=== PATIENT | male | born 1970 | race Caucasian/White ===

== ENCOUNTER 2020-02-25 12:32 | Inpatient (IN) | payer MEDICAID ==
[~2020-02-25] VITALS: Ht 170.2 cm; Wt 75.7 kg
[2020-02-25] MEDS ORDERED: IBUPROFEN 600MG TABLET PO STA (13:27)
[2020-02-25] MEDS ORDERED: ALBUTEROL 6.7GM HFA INHALER ORI ONE (13:30)
[2020-02-25 14:19] LABS: BASOPHILS % 0.2 % (0.0-2.0); EOSINOPHILS % 0.7 % (0.0-5.0); HEMOGLOBIN. 16.9 g/dL (14.0-18.0); MEAN CORPUSCULAR HEMOGLOBIN 30.6 pg (28.0-32.0); MEAN PLATELET VOLUME 7.3 fl (7.4-10.4); MONOCYTES % 6.8 % (2.0-8.0); NEUTROPHILS % 82.3 % (40.0-76.0); PLATELET 287 x1000/uL (130-400); RED BLOOD CELL COUNT 5.51 mill/uL (4.7-6.1); RED CELL DISTRIBUTION WIDTH 13.8 % (11.6-14.6)
[2020-02-25 14:20] LABS: CLARITY URINE CLEAR (CLEAR); COLOR URINE YELLOW (YELLOW); KETONES URINE NEGATIVE (NEGATIVE); LEUKOCYTE ESTERASE URINE NEGATIVE (NEGATIVE); NITRITE URINE NEGATIVE (NEGATIVE); OCCULT BLOOD URINE NEGATIVE (NEGATIVE); PH URINE 7.5 (4.5-8.0); PROTEIN URINE 1+ (NEGATIVE); SPECIFIC GRAVITY URINE 1.016 (1.005-1.030)
[2020-02-25 14:25] LABS: CHLORIDE 103 mEq/L (98-107)
[2020-02-25] MEDS ORDERED: IBUPROFEN 600MG TABLET PO PRN (16:00)
[2020-02-25] MEDS ORDERED: ACETAMINOPHEN 325MG TABLET PO PRN (18:45)
[2020-02-25] MEDS ORDERED: ONDANSETRON HCL 4MG/2ML INJ IV PRN (18:45)
[2020-02-25] MEDS ORDERED: ALBUTEROL 6.7GM HFA INHALER ORI PRN (18:45)
[2020-02-25] MEDS ORDERED: BENZONATATE 100MG CAPSULE PO PRN (18:45)
[2020-02-25 23:05] LABS: PROTHROMBIN TIME 10.5 sec (9.6-11.0)
[2020-02-26] VITALS (7 sets, daily range): BP systolic 114–149; BP diastolic 63–94
[2020-02-26] MEDS: GUAIFENESIN 600MG ER TABLET PO SCH ×3 (00:19→20:23)
[2020-02-26] MEDS: ENOXAPARIN 60MG/0.6ML SYR SUBCUT SCH ×3 (00:19→20:21)
[2020-02-26] MEDS ORDERED: AZITHROMYCIN 500 MG in DEXT 5% WATER 250 ML IV NR (00:30)
[2020-02-26] MEDS ORDERED: DOXY150T5 PO (02:07)
[2020-02-26] MEDS ORDERED: AZIT250T12 PO (02:07)
[2020-02-26] MEDS ORDERED: PRED10TA23 PO (02:07)
[2020-02-26] MEDS: CEFTRIAXONE 1 G PREMIX 50 ML IV SCH ×2 (02:31→20:21)
[2020-02-26] MEDS ORDERED: ZINC SULFATE 220 MG ( 50 ) CAPSULE PO SCH (09:00)
[2020-02-26] MEDS ORDERED: THIAMINE HCL 100MG TABLET PO SCH (09:00)
[2020-02-26] MEDS ORDERED: ASCORBIC ACID 500 MG TABLET PO SCH (09:00)
[2020-02-26] MEDS: ZINC SULFATE 220 MG ( 50 ) CAPSULE PO SCH (09:01)
[2020-02-26] MEDS: ASCORBIC ACID 500 MG TABLET PO SCH ×2 (09:01→18:05)
[2020-02-26] MEDS: THIAMINE HCL 100MG TABLET PO SCH ×2 (09:02→18:05)
[2020-02-26] MEDS ORDERED: GUAIFENESIN 600MG ER TABLET PO SCH (10:30)
[2020-02-26 11:17] LABS: *AMPHETAMINES SCREEN URINE NEGATIVE (NEGATIVE); *BARBITURATES SCREEN URINE NEGATIVE (NEGATIVE)
[2020-02-26 11:18] LABS: *BENZODIAZEPINES SCREEN URINE NEGATIVE (NEGATIVE); *COCAINE SCREEN URINE NEGATIVE (NEGATIVE); CANNABINOID URINE SCREEN NEGATIVE (NEGATIVE); METHADONE URINE SCREEN NEGATIVE (NEGATIVE); OPIATES URINE SCREEN NEGATIVE (NEGATIVE); PHENCYCLIDINE URINE SCREEN NEGATIVE (NEGATIVE)
[2020-02-26] MEDS: DEXAMETHASONE 4MG TABLET PO SCH (11:58)
[2020-02-26] MEDS: ALBUTEROL 6.7GM HFA INHALER ORI SCH ×2 (13:55→18:05)
[2020-02-26] MEDS ORDERED: REMDESIVIR 200 MG in SODIUM CHLORIDE 0.9% 250 ML IV NR (14:00)
[2020-02-26] MEDS: AZITHROMYCIN 250 MG in DEXT 5% WATER 250 ML IV SCH (20:23)
[2020-02-27] VITALS: BP 112/77
[2020-02-27] MEDS: ALBUTEROL 6.7GM HFA INHALER ORI SCH ×4 (00:18→17:12)
[2020-02-27 06:26] VITALS: BP 115/81
[2020-02-27 07:19] LABS: CHLORIDE 104 mEq/L (98-107)
[2020-02-27 08:00] VITALS: BP 111/88
[2020-02-27] MEDS: ASCORBIC ACID 500 MG TABLET PO SCH ×2 (08:49→17:39)
[2020-02-27] MEDS: THIAMINE HCL 100MG TABLET PO SCH ×2 (08:49→17:40)
[2020-02-27] MEDS: DEXAMETHASONE 4MG TABLET PO SCH (08:49)
[2020-02-27] MEDS: GUAIFENESIN 600MG ER TABLET PO SCH ×2 (08:49→20:53)
[2020-02-27] MEDS: ENOXAPARIN 60MG/0.6ML SYR SUBCUT SCH ×2 (08:49→20:52)
[2020-02-27] MEDS: ZINC SULFATE 220 MG ( 50 ) CAPSULE PO SCH (08:50)
[2020-02-27 12:00] VITALS: BP 122/77
[2020-02-27] MEDS: REMDESIVIR 100 MG in SODIUM CHLORIDE 0.9% 250 ML IV SCH (13:24)
[2020-02-27 16:00] VITALS: BP 130/82
[2020-02-27 20:00] VITALS: BP 127/90
[2020-02-27] MEDS: CEFTRIAXONE 1 G PREMIX 50 ML IV SCH (20:52)
[2020-02-27] MEDS: AZITHROMYCIN 250 MG in DEXT 5% WATER 250 ML IV SCH (20:52)
[2020-02-27] MEDS: ZOLPIDEM TARTRATE 5MG TABLET PO PRN (23:05)
[2020-02-28] VITALS: BP 136/84
[2020-02-28] MEDS: ALBUTEROL 6.7GM HFA INHALER ORI SCH ×4 (00:20→17:31)
[2020-02-28 04:00] VITALS: BP 132/84
[2020-02-28 07:00] LABS: CHLORIDE 103 mEq/L (98-107)
[2020-02-28 08:00] VITALS: BP 120/64
[2020-02-28] MEDS: GUAIFENESIN 600MG ER TABLET PO SCH ×2 (09:25→23:33)
[2020-02-28] MEDS: ASCORBIC ACID 500 MG TABLET PO SCH ×2 (09:25→16:20)
[2020-02-28] MEDS: ENOXAPARIN 60MG/0.6ML SYR SUBCUT SCH ×2 (09:26→23:33)
[2020-02-28] MEDS: DEXAMETHASONE 4MG TABLET PO SCH (09:26)
[2020-02-28] MEDS: ZINC SULFATE 220 MG ( 50 ) CAPSULE PO SCH (09:26)
[2020-02-28] MEDS: THIAMINE HCL 100MG TABLET PO SCH ×2 (09:26→16:20)
[2020-02-28 12:00] VITALS: BP 130/87
[2020-02-28] MEDS: REMDESIVIR 100 MG in SODIUM CHLORIDE 0.9% 250 ML IV SCH (15:13)
[2020-02-28 16:00] VITALS: BP 127/86
[2020-02-28 20:00] VITALS: BP 122/85
[2020-02-28] MEDS: AZITHROMYCIN 250 MG in DEXT 5% WATER 250 ML IV SCH (23:33)
[2020-02-28] MEDS: CEFTRIAXONE 1 G PREMIX 50 ML IV SCH (23:33)
[2020-02-29 00:28] VITALS: BP 125/81
[2020-02-29 04:00] VITALS: BP 127/80
[2020-02-29] MEDS ORDERED: LORAZEPAM 2MG/ML CPJ IV PRN (06:45)
[2020-02-29] MEDS: ALBUTEROL 6.7GM HFA INHALER ORI SCH ×4 (06:53→17:25)
[2020-02-29 07:34] LABS: CHLORIDE 102 mEq/L (98-107)
[2020-02-29 08:00] VITALS: BP 110/78
[2020-02-29] MEDS: ASCORBIC ACID 500 MG TABLET PO SCH ×2 (08:18→17:25)
[2020-02-29] MEDS: ENOXAPARIN 60MG/0.6ML SYR SUBCUT SCH ×2 (08:18→21:26)
[2020-02-29] MEDS: THIAMINE HCL 100MG TABLET PO SCH ×2 (08:19→17:25)
[2020-02-29] MEDS: DEXAMETHASONE 4MG TABLET PO SCH (08:19)
[2020-02-29] MEDS: ZINC SULFATE 220 MG ( 50 ) CAPSULE PO SCH (08:19)
[2020-02-29] MEDS: GUAIFENESIN 600MG ER TABLET PO SCH ×2 (08:19→21:25)
[2020-02-29 12:00] VITALS: BP 113/77
[2020-02-29] MEDS: REMDESIVIR 100 MG in SODIUM CHLORIDE 0.9% 250 ML IV SCH (13:02)
[2020-02-29] MEDS ORDERED: ALBU6.7H9 ORI (14:04)
[2020-02-29] MEDS ORDERED: DEXA2TAB MT (14:04)
[2020-02-29] MEDS ORDERED: DEXA4TAB MT (14:04)
[2020-02-29] MEDS ORDERED: DEX4 PO (14:04)
[2020-02-29 16:00] VITALS: BP 111/83
[2020-02-29 20:00] VITALS: BP 124/85
[2020-02-29] MEDS ORDERED: AZITHROMYCIN 250 MG TABLET PO SCH (21:00)
[2020-02-29] MEDS: CEFTRIAXONE 1 G PREMIX 50 ML IV SCH (21:26)
[2020-02-29] MEDS: ZOLPIDEM TARTRATE 5MG TABLET PO PRN (22:06)
[2020-03-01] VITALS: BP 115/75
[2020-03-01 04:00] VITALS: BP 117/69
[2020-03-01] MEDS: ALBUTEROL 6.7GM HFA INHALER ORI SCH ×3 (06:58→12:00)
[2020-03-01 07:27] LABS: CHLORIDE 103 mEq/L (98-107)
[2020-03-01 08:00] VITALS: BP 109/73
[2020-03-01] MEDS: DEXAMETHASONE 4MG TABLET PO SCH (08:25)
[2020-03-01] MEDS: ENOXAPARIN 60MG/0.6ML SYR SUBCUT SCH (08:25)
[2020-03-01] MEDS: ASCORBIC ACID 500 MG TABLET PO SCH (08:26)
[2020-03-01] MEDS: GUAIFENESIN 600MG ER TABLET PO SCH (08:26)
[2020-03-01] MEDS: THIAMINE HCL 100MG TABLET PO SCH (08:26)
[2020-03-01] MEDS: ZINC SULFATE 220 MG ( 50 ) CAPSULE PO SCH (08:26)
[2020-03-01 12:00] VITALS: BP 113/72
[2020-03-01] MEDS: REMDESIVIR 100 MG in SODIUM CHLORIDE 0.9% 250 ML IV SCH (13:18)
[2020-03-01 13:34] VITALS: BP 113/72
[2020-03-03] MEDS ORDERED: DEXAMETHASONE 4MG TABLET PO SCH (09:00)
== END 2020-03-01 15:10 | disposition home or self-care (01) | DRG 720 ==
LOC: ER 12:40 → 7WST 15:51 → ENRESERV 21:45
PROVIDERS: ADMIT Internal Medicine; ATTEND Internal Medicine
DX: A41.89 Other specified sepsis (principal); U07.1 COVID-19; J96.00 Acute respiratory failure, unspecified whether with hypoxia or hypercapnia; J12.89 Other viral pneumonia; E44.0 Moderate protein-calorie malnutrition; R74.0 Nonspecific elevation of levels of transaminase and lactic acid dehydrogenase [LDH]; Z79.899 Other long term (current) drug therapy
CPT/HCPCS: 36415; 71045; 80053; 80305; 81003; 82962; 83880; 84484; 85025; 87804; 93005; 94640; 96372; 99285; J0456; J0696; J1650; J2060; J7050; J7060; J8540; Q9957; C9803-CS; U0003-CS